=== PATIENT | male | born 1950 | race Caucasian/White ===

== ENCOUNTER 2023-05-07 13:28 | Emergency (ER) | payer OTHER ==
[~2023-05-07] VITALS: Ht 162.6 cm; Wt 50.3 kg
[2023-05-07 13:30] VITALS: BP_SYST 125; PULSE 89; RESP 18; TEMP 97.6; O2SAT 97
[2023-05-07 15:53] LABS: BASOPHILS # (AUTO) 0.1 K/uL (0.0-0.2); BASOPHILS % (AUTO) 1.4 % (0.0-2.0); EOSINOPHILS # (AUTO) 0.1 K/uL (0.0-0.4); EOSINOPHILS % (AUTO) 0.8 % (0.0-4.0); HEMATOCRIT 23.7 % (36-54); HEMOGLOBIN 8.1 g/dL (14.0-18.0); LYMPHOCYTES # (AUTO) 0.7 K/uL (1.0-5.5); LYMPHOCYTES % (AUTO) 7.7 % (20.5-51.5); MEAN CORPUSCULAR HEMOGLOBIN 31 pg (27-31); MEAN CORPUSCULAR HGB CONC 34 % (32-36); MEAN CORPUSCULAR VOLUME 91 fL (79.0-98.0); MONOCYTES # (AUTO) 0.6 K/uL (0.0-1.0); MONOCYTES % (AUTO) 7.1 % (1.7-9.3); NEUTROPHILS # (AUTO) 7.1 K/uL (1.8-7.7); PLATELET COUNT (AUTO) 433 K/uL (130-430); RED BLOOD CELL COUNT(AUTO) 2.59 MIL/uL (4.2-6.2); RED CELL DISTRIBUTION WIDTH 16.1 % (9.0-15.0); WHITE BLOOD COUNT (AUTO) 8.6 K/uL (4.8-10.8)
[2023-05-07 16:16] LABS: ANION GAP 18 (5-15); CARBON DIOXIDE 17 mmol/L (23-29); CHLORIDE 100 mmol/L (98-107); GLUCOSE 94 mg/dL (74-106); SODIUM SERUM 135 mmol/L (136-145)
[2023-05-07 16:22] LABS: CREATININE 12.15 mg/dL (0.55-1.30); UREA NITROGEN, BLOOD 140 mg/dL (8-21)
[2023-05-07] MEDS ORDERED: CALCIUM GLUCONATE 1 GM/10 ML VIAL ONE (16:43)
[2023-05-07] MEDS: CALCIUM GLUCONATE 1 GM in NS 100 ML IV ONE (16:46)
[2023-05-07] MEDS: SODIUM POLYSTYRENE SULFONATE 15 GM/60 ML UDBTL PO ONE (16:47)
[2023-05-07] MEDS ORDERED: KAY15 PO (17:25)
== END 2023-05-07 17:30 | disposition left against medical advice (07) ==
LOC: SED 13:28
DX: R33.9 Retention of urine, unspecified (principal); N17.9 Acute kidney failure, unspecified; E87.5 Hyperkalemia; R10.30 Lower abdominal pain, unspecified; Z79.899 Other long term (current) drug therapy
CPT/HCPCS: 80048; 85025; 36415; 93005; 99284; 96374; J0610